=== PATIENT | female | born 1955 | race Caucasian/White ===

== ENCOUNTER 2016-10-11 23:01 | Emergency (ER) | payer BC ==
[2016-10-11 23:29] VITALS: RESP 20; TEMP 97.7
[2016-10-11 23:35] LABS: BASO # 0.1 K/uL (0.0-0.2); BASO % 0.7 % (0.0-2.0); EOS # 0.1 K/uL (0.0-0.7); EOS % 0.6 % (0.0-4.0); HEMATOCRIT 38.7 % (34.0-47.0); LYMPH # 1.6 K/uL (1.0-4.3); LYMPH % 13.3 % (20.0-40.0); MEAN CELL VOLUME 87.3 fL (81.0-99.0); MEAN CORPUSCULAR HEMOGLOBIN 28.8 pg (27.0-31.0); MEAN PLATELET VOLUME 8.4 fL (7.2-11.7); MONO # 0.7 K/uL (0.0-0.8); RED CELL DISTRIBUTION WIDTH 14.1 % (11.5-14.5); WHITE BLOOD COUNT 12.1 K/uL (4.8-10.8)
[2016-10-11 23:43] LABS: CHLORIDE 106 mmol/L (98-107); SODIUM 146 mmol/L (132-148)
[2016-10-11 23:44] LABS: POTASSIUM 4.1 mmol/L (3.6-5.2)
[2016-10-11 23:46] LABS: ALB/GLOB RATIO 1.4 (1.0-2.1); ALKALINE PHOSPHATASE 54 U/L (38-126); ALT/SGPT 32 U/L (9-52); AST/SGOT 32 U/L (14-36); BILIRUBIN,TOTAL 0.5 mg/dL (0.2-1.3); BLOOD UREA NITROGEN 14 mg/dL (7-17); CARBON DIOXIDE 24 mmol/L (22-30); GFR AFRICAN-AMERICAN > 60; GLUCOSE,RANDOM 196 mg/dL (65-105); TOTAL PROTEIN 7.4 g/dL (6.3-8.3)
[2016-10-11 23:47] LABS: CALCIUM 9.2 mg/dl (8.6-10.4)
--- NOTE | 2016-10-12 00:04 | C.PDOC ---
History Of Present Illness 61 y/o female presents to ED with complaints of left foot pain. Patient states she twisted left foot at clinic and felt severe pain followed by near syncope episode. At ED patient is at baseline neurologically and has no further complaints. Time Seen by Provider: 10/11/16 23:19 Chief Complaint (Nursing): Trauma History Per: Patient History/Exam Limitations: no limitations Onset/Duration Of Symptoms: Mins Current Symptoms Are (Timing): Still Present Past Medical History Reviewed: Historical Data, Nursing Documentation, Vital Signs Vital Signs: Last Vital Signs Temp 97.7 F 10/11/16 23:05 Pulse 95 H 10/11/16 23:05 Resp 20 10/11/16 23:05 BP 138/46 L 10/11/16 23:05 Pulse Ox 95 10/12/16 00:04 Surgical History: No Surg Hx Family History: States: No Known Family Hx - Social History Hx Alcohol Use: No Hx Substance Use: No - Immunization History Hx Tetanus Toxoid Vaccination: No Hx Influenza Vaccination: Yes Hx Pneumococcal Vaccination: No Review Of Systems Except As Marked, All Systems Reviewed And Found Negative. Constitutional: Negative for: Fever, Chills Eyes: Negative for: Vision Change Cardiovascular: Negative for: Chest Pain Musculoskeletal: Positive for: Foot Pain. Negative for: Back Pain Skin: Negative for: Rash Neurological: Negative for: Weakness, Numbness, Headache, Dizziness Physical Exam - Physical Exam Appears: Non-toxic, No Acute Distress Skin: Normal Color, Warm, Dry, No Rash Head: Atraumatic, Normacephalic Eye(s): bilateral: Normal Inspection, PERRL, EOMI Oral Mucosa: Moist Neck: Normal ROM, Supple Chest: Symmetrical Cardiovascular: Rhythm Regular, No Murmur Respiratory: Normal Breath Sounds, No Rales, No Rhonchi, No Wheezing Gastrointestinal/Abdominal: Soft, No Tenderness, No Guarding, No Rebound Extremity: Tenderness (mild to left lateral foot), Capillary Refill (<2 seconds) , No Deformity Pulses: Left Dorsalis Pedis: Normal, Right Dorsalis Pedis: Normal Neurological/Psych: Oriented x3, Normal Speech, Normal Cognition ED Course And Treatment - Laboratory Results Result Diagrams: 10/11/16 23:32 10/11/16 23:32 Lab Interpretation: Normal (mild elev glu) ECG: Interpreted By Me ECG Rhythm: Sinus Rhythm ECG Interpretation: Normal Rate From EC (bpm) O2 Sat by Pulse Oximetry: 95 (ra) Pulse Ox Interpretation: Normal - Radiology CXR: Interpreted by Me CXR Interpretation: Yes: No Acute Disease - Other Rad L foot X-Ray: Interpreted by Me (neg) Medical Decision Making Medical Decision Making: twisted L foot while stepping down on a step while @ [employer] acute pain caused brief near-syncopal episode, resolved < 45 seconds, no post- ictal, no MS changes w/u neg today Disposition Doctor Will See Patient In The: Office Counseled Patient/Family Regarding: Studies Performed, Diagnosis - Disposition Referrals: Ricardo Goss MD [Staff Provider] - Disposition: HOME/ ROUTINE Disposition Time: 00:04 Condition: GOOD Additional Instructions: ice packs to L foot 1/2 hour per hour, nothing hot Motrin 400-600 mg every 6 hours as needed for sprained foot pain Instructions: Foot Sprain (ED), Near Syncope (ED) Forms: [email or web address] (Maltese) - Clinical Impression Clinical Impression: Sprain of foot, left, Vasovagal near syncope - 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 - Scribe Statement The provider has reviewed the documentation as recorded by the Alexibmanish Moffett All medical record entries made by the Harmeet were at my direction and personally dictated by me. I have reviewed the chart and agree that the record accurately reflects my personal performance of the history, physical exam, medical decision making, and the department course for this patient. I have also personally directed, reviewed, and agree with the discharge instructions and disposition.
[2016-10-12 00:34] VITALS: BP 123/55; PULSE 83
[2016-10-12 00:36] VITALS: O2SAT 95
--- NOTE | 2016-10-12 06:18 | RAD ---
PROCEDURE: CHEST RADIOGRAPH, 1 VIEW HISTORY: Shortness of breath COMPARISON: None available. FINDINGS: LUNGS: Prominent diffuse increased interstitial lung markings throughout both lungs. Biapical pleural thickening with upper lobe granulomatous changes. Scattered nodularity in both lung toro. Mild venous congestion. Right hilar prominence. PLEURA: No pneumothorax or pleural fluid seen. CARDIOVASCULAR: Normal. OSSEOUS STRUCTURES: Degenerative changes in the spine and shoulders. VISUALIZED UPPER ABDOMEN: Normal. OTHER FINDINGS: None. IMPRESSION: Prominent diffuse increased interstitial lung markings throughout both lungs. Biapical pleural thickening with upper lobe granulomatous changes. Scattered nodularity in both lung toro. Mild venous congestion. Right hilar prominence.
--- NOTE | 2016-10-12 08:42 | RAD ---
PROCEDURE: Left Foot Radiographs. HISTORY: L lateral foot pain, twisted foot, fell COMPARISON: None. FINDINGS: BONES: Inferior calcaneal spurring. Trace please tendon insertional enthesophyte is noted. A sub cm incidental benign-appearing bone island calcaneus suggested. No cortical fracture. . The trabecular markings of the cuboid bone or borderline prominent. This also is in the area of patient's pain JOINTS: Normal. SOFT TISSUES: Normal. OTHER FINDINGS: None. IMPRESSION: No cortical fracture. No 5th meta tarsal base fracture appreciated. Some of the trabecular markings in the lateral midfoot are slightly prominent. If further evaluation is needed consider MRI of the left foot
--- NOTE | 2016-10-13 00:13 | CARD ---
APPROVED REPORT EKG Measurement Heart [id number] <Conclusion> Normal sinus rhythm RSR' or QR pattern in V1 suggests right ventricular conduction delay Borderline ECG
== END 2016-10-12 00:40 | disposition home or self-care (01) ==
LOC: C.ER 23:01
DX: S93.602A Unspecified sprain of left foot, initial encounter (principal); X50.9XXA Other and unspecified overexertion or strenuous movements or postures, initial encounter; R55 Syncope and collapse

== ENCOUNTER 2017-05-05 06:37 | Day surgery (SDC) | payer BC ==
[2017-05-05] MEDS ORDERED: Propofol 10 mg/ml Inj (20 ML) ONE ×2 (08:34)
[2017-05-05] MEDS ORDERED: Lactated Ringer's 1,000 ML IV ONE (08:44)
[2017-05-05 12:26] VITALS: BP 106/77; PULSE 78; RESP 18; TEMP 97; O2SAT 100
== END 2017-05-05 10:50 | disposition home or self-care (01) ==
LOC: C.ENDO 06:37
PROVIDERS: ATTEND Internal Medicine Gastroenterology
DX: Z12.11 Encounter for screening for malignant neoplasm of colon (principal); K64.1 Second degree hemorrhoids; K63.5 Polyp of colon